=== PATIENT | female | born 1980 | race Two or more races ===

== ENCOUNTER 2021-12-21 09:33 | Outpatient (REF) | payer OTHER, SELFPAY ==
[2021-12-21 10:04] LABS: MANUAL DIFF FLAG NO
[2021-12-21 10:31] LABS: Basophils Percent Auto 0.3 % (0-2); Eosinophils Absolute Auto 0.3 X10*3/uL (0.0-0.4); Eosinophils Percent Auto 3.6 % (0-4); Hematocrit 38.5 % (37.0-47.0); Hemoglobin 12.8 g/dl (12.0-16.0); Imm Gran Abs Auto 0.03 X10*3/uL (0.00-0.03); Imm Gran Pct Auto 0.3 % (0.0-0.4); Lymphocytes Absolute Auto 2.9 X10*3/uL (1.2-4.9); Lymphocytes Percent Auto 32.1 % (20-40); Mean Corpuscular HGB Conc 33.2 g/dl (31.0-35.0); Mean Corpuscular Hemoglobin 29.8 pg (27.0-33.0); Mean Corpuscular Volume 89.7 fL (80.0-98.0); Mean Platelet Volume 9.2 fL (9.4-12.3); Monocytes Absolute Auto 0.5 X10*3/uL (0.1-1.2); Monocytes Percent Auto 5.7 % (2-11); Neutrophils Absolute Auto 5.1 x10*3/uL (2.0-8.3); Platelet Count 290 X10*3/uL (160-400); Red Blood Count 4.29 X10*6/uL (4.20-5.50); Red Cell Distribution Width 12.3 % (11.0-16.0); White Blood Count 8.9 X10*3/uL (4.8-10.8)
[2021-12-21 10:52] LABS: Estimated Average Glucose 105 mg/dL; Hemoglobin A1c % 5.3 %
[2021-12-21 11:02] LABS: Alanine Aminotransferase 46 U/L (0-31); Albumin Level 3.6 g/dL (3.5-5.0); Alkaline Phosphatase 56 U/L (39-117); Anion Gap 9 (12-20); Aspartate Amino Transferase 27 U/L (5-31); Bilirubin Total 0.6 mg/dL (0.0-1.0); Blood Urea Nitrogen 9 mg/dL (9-16); Calcium 8.2 mg/dL (8.4-10.2); Carbon Dioxide 27 mmol/L (22-29); Chloride 107 mmol/L (96-108); Cholesterol 178 mg/dL; Estimated Glomerular Filt Rate > 60; Glucose Fasting 97 mg/dL (60-99); HDL Cholesterol 43 mg/dL; LDL Cholesterol Calculated 101 mg/dl; Potassium 4.1 mmol/L (3.3-5.1); Sodium 139 mmol/L (135-145); Total Protein 6.1 g/dL (6.5-8.0); Triglycerides 172 mg/dL
[2021-12-21 11:26] LABS: TSH reflex Free T4 3.24 uIU/mL (0.32-4.0)
[2021-12-21 11:31] LABS: Folate 17.9 ng/mL (> or = 4.0); Vitamin B12 638 pg/mL (200-900)
[2021-12-26 13:01] LABS: Vitamin D 25-OH, D2 <4 ng/mL; Vitamin D 25-OH, D3 24 ng/mL; Vitamin D 25-OH, Total 24 ng/mL (30-100)
== END 2021-12-21 09:34 | disposition home or self-care (01) ==
LOC: HO.LAB 09:33
PROVIDERS: PCP Nurse Practitioner Acute Care; Visit Provider Nurse Practitioner Acute Care
DX: Z76.89 Persons encountering health services in other specified circumstances (principal); Z13.220 Encounter for screening for lipoid disorders; Z13.29 Encounter for screening for other suspected endocrine disorder
CPT/HCPCS: 36415; 80053; 80061; 82306; 82607; 82746; 83036; 84443; 85025

== ENCOUNTER 2022-12-13 10:26 | Outpatient (REF) | payer OTHER, SELFPAY ==
[2022-12-13 10:41] LABS: MANUAL DIFF FLAG NO
--- NOTE | 2022-12-13 10:43 | ECG_ITS ---
Test Reason : CHEST PAIN Blood Pressure : / mmHG Vent. Rate : 080 BPM Atrial Rate : 080 BPM P-R Int : 148 ms QRS Dur : 074 ms QT Int : 352 ms P-R-T Axes : 069 051 051 degrees QTc Int : 405 ms Normal sinus rhythm Normal ECG No previous ECGs available Referred By: Manisha Marcos Electronically Signed By:TANNER SCHMITT MD
[2022-12-13 11:05] LABS: Basophils Percent Auto 0.5 % (0-2); Eosinophils Absolute Auto 0.3 X10*3/uL (0.0-0.4); Eosinophils Percent Auto 4.3 % (0-4); Hematocrit 40.4 % (37.0-47.0); Hemoglobin 13.2 g/dl (12.0-16.0); Imm Gran Abs Auto 0.01 X10*3/uL (0.00-0.03); Imm Gran Pct Auto 0.1 % (0.0-0.4); Lymphocytes Absolute Auto 2.9 X10*3/uL (1.2-4.9); Lymphocytes Percent Auto 38.3 % (20-40); Mean Corpuscular HGB Conc 32.7 g/dl (31.0-35.0); Mean Corpuscular Hemoglobin 29.1 pg (27.0-33.0); Mean Corpuscular Volume 89.2 fL (80.0-98.0); Mean Platelet Volume 9.3 fL (9.4-12.3); Monocytes Absolute Auto 0.4 X10*3/uL (0.1-1.2); Monocytes Percent Auto 5.2 % (2-11); Neutrophils Absolute Auto 3.9 x10*3/uL (2.0-8.3); Neutrophils Percent Auto 51.6 % (45-73); Platelet Count 328 X10*3/uL (160-400); Red Blood Count 4.53 X10*6/uL (4.20-5.50); Red Cell Distribution Width 12.2 % (11.0-16.0); White Blood Count 7.7 X10*3/uL (4.8-10.8)
[2022-12-13 12:04] LABS: Alanine Aminotransferase 19 U/L (0-31); Albumin Level 3.9 g/dL (3.5-5.0); Alkaline Phosphatase 56 U/L (39-117); Anion Gap 11 (12-20); Aspartate Amino Transferase 17 U/L (5-31); Bilirubin Total 0.6 mg/dL (0.0-1.0); Blood Urea Nitrogen 11 mg/dL (9-16); Calcium 8.6 mg/dL (8.4-10.2); Carbon Dioxide 27 mmol/L (22-29); Chloride 108 mmol/L (96-108); Cholesterol 219 mg/dL; Estimated Glomerular Filt Rate > 60; Glucose Random 108 mg/dL (60-115); HDL Cholesterol 49 mg/dL; LDL Cholesterol Calculated 140 mg/dl; Potassium 4.5 mmol/L (3.3-5.1); Sodium 141 mmol/L (135-145); TSH reflex Free T4 2.89 uIU/mL (0.32-4.0); Total Protein 6.4 g/dL (6.5-8.0); Triglycerides 153 mg/dL
[2022-12-13 13:02] LABS: Vitamin D 25-OH Total 26.2 ng/mL (>30)
== END 2022-12-13 10:27 | disposition home or self-care (01) ==
LOC: HO.LAB 10:26
PROVIDERS: PCP Internal Medicine; Visit Provider Nurse Practitioner Family
DX: R07.89 Other chest pain (principal); R74.01 Elevation of levels of liver transaminase levels; Z13.21 Encounter for screening for nutritional disorder; Z13.29 Encounter for screening for other suspected endocrine disorder; Z13.220 Encounter for screening for lipoid disorders; Z13.0 Encounter for screening for diseases of the blood and blood-forming organs and certain disorders involving the immune mechanism; E55.9 Vitamin D deficiency, unspecified
CPT/HCPCS: 36415; 80053; 80061; 82306; 84443; 85025; 93005

== ENCOUNTER 2023-04-18 13:23 | Outpatient (AMB) | payer OTHER, SELFPAY ==
[2023-04-18 13:33] VITALS: BP 108/70; BMI 36.2
--- NOTE | 2023-04-18 13:33 | MHC.PC.OV ---
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 Accompanied by: Self / Same As Patient Allergies No Known Drug Allergies Allergy (Mild, Verified 04/18/23 13:43) Unknown Medication List - Last Reconciled 04/18/23 by Azra Dhaliwal MD albuterol sulfate 90 mcg/actuation 2 puffs PO QID PRN cetirizine 10 mg PO DAILY 30 days cholecalciferol (vitamin D3) 50 mcg PO DAILY citalopram 10 mg PO DAILY clotrimazole-betamethasone 1-0.05 % 1 appl topical ONCE PRN fluticasone propionate 110 mcg/actuation (Flovent HFA) 1 puff inhalation BID folic acid 1 mg PO DAILY 30 days hydrocortisone-acetic acid 1-2 % 4 drps otic (ear) left TID levothyroxine 25 mcg PO DAILY omeprazole 20 mg PO DAILY Tobacco use date assessed: 03/21/23 Dental Screening Dental Screen Date: 04/18/23 Did you have a dental visit in the last 12 months?: Yes Did you have a dental problem in the last 6 months where you did not have access to dental care?: No Was dental information given to patient?: Patient has dentist HPI HPI Comments History of Present Illness Details This is a 42-year-old female with mild major depression, hypothyroidism, GERD and asthma that comes today complaining of loss of concentration and 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 On citalopram for depression. She needs FMLA continuous leave from April 21 to May 05. TSH was ordered for her hypothyroidism. GERD stable with medications. Use rescue inhaler once a month. [facility] Medical History (Updated 04/18/23 @ 15:00 by Azra Dhaliwal MD) Asthma Chest pressure Depression Hypothyroidism Otitis externa, left Persistent insomnia Sciatica associated with disorder of lumbar spine Surgical History H/O eye surgery History of History of cholecystectomy History of tonsillectomy Family History Mother No problems noted. Father Venous insufficiency Sister Leukemia Social History Housing: House Alcohol intake: current Alcohol intake frequency: does not drink Patient Tobacco Use Status: Never used Tobacco e-Cigarette/Vaping Use: Never Used Second Hand Smoke Exposure: No service: No Current occupational status: employed Current occupational exposures/hazards: No Cognitive needs: No Hearing needs: No Vision needs: Yes (glasses) Questionnaire Thrive Questionnaire Date Thrive assessed: 12/13/22 ZACHERY-7 AMB Questionnaire ZACHERY-7 Date ZACHERY - 7 assessed: 12/13/22 Source: Developed by Drs. Ezio Jaramillo, Ama Ibarra, Randall Melara and colleagues, with an educational layo from [employer]. Review of Systems Const All systems reviewed & are unremarkable except as noted in HPI and below Eyes Reports no additional complaints, Denies change in vision and Denies other visual disturbances Card Denies chest pain at rest, Denies chest pain with activity, Denies edema, Denies irregular heart rhythm, Denies claudication, Denies dyspnea, Denies dyspnea on exertion, Denies orthopnea, Denies paroxysmal nocturnal dyspnea and Denies slow heart rate Resp Denies cough, Denies dyspnea and Denies dyspnea on exertion GI Denies abdominal pain, Denies change in bowel habits, Denies excessive flatus, Denies nausea and Denies vomiting Denies urinary incontinence, Denies urinary hesitancy and Denies urinary urgency Musc Denies abnormal gait, Denies atrophy, Denies deformity and Denies limited range of motion Skin/Breast Denies bleeding lesions, Denies changing lesions and Denies rash Neuro Denies abnormal gait and Denies lack of coordination Psych Reports depression Physical exam (Primary Care) Vital Signs: Last Vital Signs BP 108/70 04/18/23 13:33 BMI result Body Mass Index 36.2 Tobacco/Smoking Status: Tobacco use Status Tobacco use date assessed 03/21/23 04/18/23 13:40 Patient Tobacco Use Status Never used Tobacco 04/18/23 13:40 e-Cigarette/Vaping Use Never Used 04/18/23 13:40 Thrive Assessment: Date of Thrive Assessment Date Thrive assessed 12/13/22 04/18/23 13:40 Eyes General: appearance normal, both eyes and all related structures Eyelids: Yes eyelids normal Conjunctivae: conjunctivae normal Neck Neck: Yes normal visual inspection and Yes supple Resp Effort & Inspection: normal respiratory effort Auscultation: clear to auscultation bilaterally Cardio Jugular venous distension: no JVD Rate: regular rate Rhythm: regular rhythm Heart sounds: S1 normal heart sound present and S2 normal heart sound present Extrem General: Yes full ROM Psych Appearance: grossly normal Affect: Sad affect present Assessment and Plan Assessment & Plan (1) Mild major depression: Code(s): F32.0 - Major depressive disorder, single episode, mild Plan: Continue citalopram (2) GERD without esophagitis: Code(s): K21.9 - Gastro-esophageal reflux disease without esophagitis Plan: Continue omeprazole. 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 Monitor TSH (4) Asthma: Code(s): J45.909 - Unspecified asthma, uncomplicated Plan: Use rescue inhaler as needed Orders: Orders Thyroid Stimulating Hormone Today E03.8 - Other specified hypothyroidism, E06.3 - Autoimmune thyroiditis Medications: Refilled hydrocortisone-acetic acid 1-2 % instill 4 drops into left ear three times a day for 7 days 4 drps otic (ear) left TID 10 mL 0RF folic acid 1 mg PO DAILY 30 days 30 tabs 3RF H66.90 - Otitis media, unspecified, unspecified ear Coding Level of Care Code Est Pt Level 4 (09933) Diagnoses Mild major depression F32.0 GERD without esophagitis K21.9 Hypothyroidism E03.8; E06.3 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
== END 2023-04-18 13:59 | disposition home or self-care (01) ==
PROVIDERS: PCP Internal Medicine; Visit Provider Internal Medicine
DX: F32.0 Major depressive disorder, single episode, mild (principal); K21.9 Gastro-esophageal reflux disease without esophagitis; E03.8 Other specified hypothyroidism; E06.3 Autoimmune thyroiditis; J45.909 Unspecified asthma, uncomplicated
CPT/HCPCS: 99214

== ENCOUNTER 2023-04-18 14:08 | Outpatient (REF) | payer OTHER, SELFPAY ==
[2023-04-18 20:39] LABS: Thyroid Stimulating Hormone 1.61 uIU/mL (0.32-4.0)
== END 2023-04-18 14:09 | disposition home or self-care (01) ==
LOC: HO.LAB 14:08
PROVIDERS: PCP Internal Medicine; Visit Provider Internal Medicine
DX: E03.8 Other specified hypothyroidism (principal); E06.3 Autoimmune thyroiditis
CPT/HCPCS: 36415; 84443

== ENCOUNTER 2023-05-22 16:35 | Outpatient (AMB) | payer OTHER, SELFPAY ==
[2023-05-22 16:38] VITALS: BP 122/80; BMI 36.4
--- NOTE | 2023-05-22 16:38 | A.OFFPC_ITS ---
Vital Signs 05/22/23 16:38 Height 5 ft 2 in Weight 199 lb BMI 36.4 BP 122/80 Blood Pressure Location Lt brachial Position Sitting Intake Visit Reasons: F/U with Dr. 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 Accompanied by: Self / Same As Patient Allergies No Known Drug Allergies Allergy (Mild, Verified 05/22/23 16:52) Unknown Medication List - Last Reconciled 05/22/23 by Azra Dhaliwal MD albuterol sulfate 90 mcg/actuation 2 puffs PO QID PRN cetirizine 10 mg PO DAILY 30 days cholecalciferol (vitamin D3) 50 mcg PO DAILY citalopram 10 mg PO DAILY clotrimazole-betamethasone 1-0.05 % 1 appl topical ONCE PRN fluticasone propionate 110 mcg/actuation (Flovent HFA) 1 puff inhalation BID folic acid 1 mg PO DAILY 30 days hydrocortisone-acetic acid 1-2 % 4 drps otic (ear) left TID levothyroxine 25 mcg PO DAILY omeprazole 20 mg PO DAILY Tobacco use date assessed: 03/21/23 Dental Screening Dental Screen Date: 05/22/23 Did you have a dental visit in the last 12 months?: Yes Did you have a dental problem in the last 6 months where you did not have access to dental care?: No Was dental information given to patient?: Patient has dentist HPI HPI Comments History of Present Illness Details This is a 43-year-old female with GERD without esophagitis, hypothyroidism, mild major depression and low vitamin-D that comes today for follow-up on her conditions. GERD stable with medications. Last TSH was normal. Depression has improved with medications. On vitamin-D supplements for low vitamin-D. Denies any chest pain or shortness of breath. Complains of legs feeling heavy when she walks. [facility] Medical History (Updated 04/18/23 @ 15:00 by Azra Dhaliwal MD) Asthma Chest pressure Depression Hypothyroidism Otitis externa, left Persistent insomnia Sciatica associated with disorder of lumbar spine Surgical History H/O eye surgery History of History of cholecystectomy History of tonsillectomy Family History Mother No problems noted. Father Venous insufficiency Sister Leukemia Social History Housing: House Alcohol intake: current Alcohol intake frequency: does not drink Patient Tobacco Use Status: Never used Tobacco e-Cigarette/Vaping Use: Never Used Second Hand Smoke Exposure: No service: No Current occupational status: employed Current occupational exposures/hazards: No Cognitive needs: No Hearing needs: No Vision needs: Yes (glasses) Questionnaire Thrive Questionnaire Date Thrive assessed: 12/13/22 ZACHERY-7 AMB Questionnaire ZACHERY-7 Date ZACHERY - 7 assessed: 12/13/22 Source: Developed by Drs. Ezio Jaramillo, Ama Ibarra, Randall Melara and colleagues, with an educational layo from [employer]. Review of Systems Const All systems reviewed & are unremarkable except as noted in HPI and below Eyes Reports no additional complaints, Denies change in vision and Denies other visual disturbances Card Denies chest pain at rest, Denies chest pain with activity, Denies edema, Denies irregular heart rhythm, Denies claudication, Denies dyspnea, Denies dyspnea on exertion, Denies orthopnea, Denies paroxysmal nocturnal dyspnea and Denies slow heart rate Resp Denies cough, Denies dyspnea and Denies dyspnea on exertion GI Denies abdominal pain, Denies change in bowel habits, Denies excessive flatus, Denies nausea and Denies vomiting Denies urinary incontinence, Denies urinary hesitancy and Denies urinary urgency Musc Denies abnormal gait, Denies atrophy, Denies deformity and Denies limited range of motion Skin/Breast Denies bleeding lesions, Denies changing lesions and Denies rash Neuro Denies abnormal gait and Denies lack of coordination Physical exam (Primary Care) Vital Signs: Last Vital Signs BP 122/80 05/22/23 16:38 BMI result Body Mass Index 36.4 Tobacco/Smoking Status: Tobacco use Status Tobacco use date assessed 03/21/23 05/22/23 16:42 Patient Tobacco Use Status Never used Tobacco 05/22/23 16:42 e-Cigarette/Vaping Use Never Used 05/22/23 16:42 Thrive Assessment: Date of Thrive Assessment Date Thrive assessed 12/13/22 05/22/23 16:42 Eyes General: appearance normal, both eyes and all related structures Eyelids: Yes eyelids normal Conjunctivae: conjunctivae normal Neck Neck: Yes normal visual inspection and Yes supple Resp Effort & Inspection: normal respiratory effort Auscultation: clear to auscultation bilaterally Cardio Jugular venous distension: no JVD Rate: regular rate Rhythm: regular rhythm Heart sounds: S1 normal heart sound present and S2 normal heart sound present Extrem General: Yes full ROM Assessment and Plan Assessment & Plan (1) Mild major depression: Code(s): F32.0 - Major depressive disorder, single episode, mild Plan: Continue citalopram. 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
== END 2023-05-22 17:13 | disposition home or self-care (01) ==
PROVIDERS: PCP Physician Assistant; Visit Provider Internal Medicine
DX: F33.0 Major depressive disorder, recurrent, mild (principal); K21.9 Gastro-esophageal reflux disease without esophagitis; E03.8 Other specified hypothyroidism; E06.3 Autoimmune thyroiditis; E55.9 Vitamin D deficiency, unspecified
CPT/HCPCS: 99214

== ENCOUNTER 2023-11-16 15:29 | Outpatient (AMB) | payer OTHER, SELFPAY ==
--- NOTE | 2023-11-16 15:33 | A.OFFPC_ITS ---
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 Accompanied by: Self / Same As Patient Allergies No Known Drug Allergies Allergy (Mild, Verified 11/16/23 15:54) Unknown Medication List - Last Reconciled 11/16/23 by Azra Dhaliwal MD albuterol sulfate 90 mcg/actuation 2 puffs PO QID PRN cetirizine 10 mg PO DAILY 30 days cholecalciferol (vitamin D3) 50 mcg PO DAILY citalopram 10 mg PO DAILY clotrimazole-betamethasone 1-0.05 % 1 appl topical ONCE PRN fluticasone furoate 50 mcg/actuation (Arnuity Ellipta) 1 inh inhalation DAILY 30 days hydrocortisone-acetic acid 1-2 % 4 drps otic (ear) left TID levothyroxine 25 mcg PO DAILY omeprazole 20 mg PO DAILY Tobacco use date assessed: 11/16/23 Dental Screening Dental Screen Date: 11/16/23 Did you have a dental visit in the last 12 months?: No Did you have a dental problem in the last 6 months where you did not have access to dental care?: No Was dental information given to patient?: Patient has dentist HPI HPI Comments History of Present Illness Details This is a 43-year-old female with mild major depression that comes for her physical exam. Depression has markedly improved with citalopram. Last mammogram was about a year ago. Last Pap smear was 122 years ago and was normal as per patient done at [facility]. Has never had a colonoscopy and has no family history of colon cancer. I will send her to Gastroenterology to evaluate for colonoscopy. No chest pain or shortness of breath. Feels abdominal bloating associated with food and will start dicyclomine. Side effects were discussed. She is obese with a BMI of 37.9 and was advised to diet and exercise to reach BMI goal less than 30. [facility] Medical History (Updated 11/16/23 @ 16:07 by Azra Dhaliwal MD) Otitis externa, left Chest pressure Sciatica associated with disorder of lumbar spine Persistent insomnia Hypothyroidism Depression Asthma Surgical History History of cholecystectomy History of History of tonsillectomy H/O eye surgery Family History Mother No problems noted. Father Venous insufficiency Sister Leukemia Social History (Updated 11/16/23 @ 15:58 by Azra Dhaliwal MD) Housing: House Alcohol intake: current Alcohol intake frequency: holidays/special occasions only Alcohol type: hard liquor Patient Tobacco Use Status: Never used Tobacco e-Cigarette/Vaping Use: Never Used Second Hand Smoke Exposure: No service: No Current occupational status: employed Current occupational exposures/hazards: No Cognitive needs: No Hearing needs: No Vision needs: Yes (glasses) Questionnaire PHQ-9 Over the last 2 weeks, how often have you been bothered by any of the following problems? 1. Little interest or pleasure in doing things: not at all 2. Feeling down, depressed, or hopeless: not at all 3. Trouble falling or staying asleep, or sleeping too much: not at all 4. Feeling tired or having little energy: not at all 5. Poor appetite or overeating: not at all 6. Feeling bad about yourself - or that you are a failure or have let yourself or your family down: not at all 7. Trouble concentrating on things, such as reading the newspaper or watching television: not at all 8. Moving or speaking so slowly that other people could have noticed. Or the opposite - being so fidgety or restless that you have been moving around a lot more than usual: not at all 9. Thoughts that you would be better off or of hurting yourself in some way: not at all Total score: 0 Depression Screening Interpretation: Negative Depression Screening Done: Yes 44812 - PHQ-9 Billing: Yes Source: Developed by Drs. Ezio Jaramillo, Ama Ibarra, Randall Melara and colleagues, with an educational layo from [email or web address]. Thrive Questionnaire Date Thrive assessed: 11/16/23 I am a: Patient What is your living situation today?: I have a steady place to live Within the past 12 months, did the food you bought not last and you didn't have the money to get more?: Never true Within the past 12 months, did you worry whether your food would run out before you got money to buy more?: Never true Do you have trouble paying for medicines?: No Do you have trouble getting transportation to medical appointments?: No Do you have trouble paying your heating and electricity bill?: No Do you have trouble taking care of your child, family member or friend?: No Do you have trouble with day-to-day activities such as bathing, preparing meals, shopping, managing finances, etc.?: No Are you currently unemployed and looking for a job?: No Are you interested in more education?: No Please select the resources that you would like help with: None Currently or been in a relationship where the following occur: no concerns reported THRIVE Score: 0 AUDIT C Alcohol Use Questionnaire (AUDIT-C) 1. How often do you have a drink containing alcohol?: Never Total Score: 0 ZACHERY-7 AMB Questionnaire ZACHERY-7 Date ZACHERY - 7 assessed: 11/16/23 Feeling nervous, anxious, or on edge: 1 = Several days Not being able to stop or control worryin = Not at all Worrying too much about different things: 0 = Not at all Trouble relaxin = Not at all Being so restless that it is hard to sit still: 0 = Not at all Becoming easily annoyed or irritable: 0 = Not at all Feeling afraid as if something awful might happen: 0 = Not at all Total ZACHERY-7 score (0-4 normal; 5-9 mild; 10-14 moderate; 15-21 severe): 1 Source: Developed by Drs. Ezio Jaramillo, Ama Ibarra, Randall Melara and colleagues, with an educational layo from [email or web address]. ZACHERY-7 Assessment Billing ZACHERY-7 Assessment Tool: ZACHERY-7 Assessment 01231 Review of Systems Const All systems reviewed & are unremarkable except as noted in HPI and below Eyes Reports no additional complaints, Denies change in vision and Denies other visual disturbances Card Denies chest pain at rest, Denies chest pain with activity, Denies edema, Denies irregular heart rhythm, Denies claudication, Denies dyspnea, Denies dyspnea on exertion, Denies orthopnea, Denies paroxysmal nocturnal dyspnea and Denies slow heart rate Resp Denies cough, Denies dyspnea and Denies dyspnea on exertion GI Denies abdominal pain, Denies change in bowel habits, Denies excessive flatus, Denies nausea and Denies vomiting Denies urinary incontinence, Denies urinary hesitancy and Denies urinary urgency Musc Denies abnormal gait, Denies atrophy, Denies deformity and Denies limited range of motion Skin/Breast Denies bleeding lesions, Denies changing lesions and Denies rash Neuro Denies abnormal gait, Denies behavioral changes, Denies confusion and Denies lack of coordination Psych Denies behavioral changes and Denies confusion Physical exam (Primary Care) Vital Signs: Last Vital Signs BP 110/72 11/16/23 15:36 BMI result Body Mass Index 37.9 Tobacco/Smoking Status: Tobacco use Status Tobacco use date assessed 11/16/23 11/16/23 15:38 Patient Tobacco Use Status Never used Tobacco 11/16/23 15:35 e-Cigarette/Vaping Use Never Used 11/16/23 15:35 PHQ-9: PHQ-9 Score PHQ-9: Total score 0 11/16/23 15:43 Depression Screening Interpretation: Negative Thrive Assessment: Date of Thrive Assessment Date Thrive assessed 11/16/23 11/16/23 15:43 Currently or been in a relationship where the following occur: no concerns reported Const General: No confusion Orientation/consciousness: patient oriented x3 and No confusion HENPA Head: Yes normal to inspection, Yes normocephalic and Yes atraumatic Ears: external ears normal Eyes General: appearance normal, both eyes and all related structures Eyelids: Yes eyelids normal Conjunctivae: conjunctivae normal Neck Neck: Yes normal visual inspection and Yes supple Resp Effort & Inspection: normal respiratory effort Auscultation: clear to auscultation bilaterally Cardio Jugular venous distension: no JVD Rate: regular rate Rhythm: regular rhythm Heart sounds: S1 normal heart sound present and S2 normal heart sound present GI Inspection: Yes normal to inspection Palpation (GI): Soft to palpation and nontender Auscultation: normal bowel sounds Skin General skin exam: no rashes or lesions noted Neuro General: patient oriented x3, no focal motor deficits and No confusion Extrem General: Yes full ROM Psych Appearance: grossly normal Assessment and Plan Assessment & Plan (1) Physical exam: Code(s): Z00.00 - Encounter for general adult medical examination without abnormal findings Plan: Repeat in a year. (2) Mild major depression: Code(s): F32.0 - Major depressive disorder, single episode, mild Plan: Continue citalopram. Orders: Orders Thyroid Stimulating Hormone Today E03.8 - Other specified hypothyroidism, E06.3 - Autoimmune thyroiditis Lipid Panel Today Z00.00 - Encounter for general adult medical examination without abnormal findings MM screening mammo BI Today Z12.31 - Encounter for screening mammogram for malignant neoplasm of breast Comprehensive [place]. Panel Fast Today Z00.00 - Encounter for general adult medical examination without abnormal findings Referrals Gastroenterology Referral Z12.11 - Encounter for screening for malignant neoplasm of colon Medications: New dicyclomine 20 mg PO TID 30 days PRN 90 tabs 0RF abdominal pain Coding Level of Care Code Est Pt Prev Care 40-64y(31394) Diagnoses Physical exam Z00.00 Mild major depression F32.0 Additional Codes ZACHERY-7 Assessment Billing - ZACHERY-7 Assessment Tool: ZACHERY-7 Assessment 26191 ([id number]) Time Spent (min) 33
[2023-11-16 15:36] VITALS: BP 110/72; BMI 37.9
== END 2023-11-16 17:00 | disposition home or self-care (01) ==
PROVIDERS: PCP Physician Assistant; Visit Provider Internal Medicine
DX: Z00.00 Encounter for general adult medical examination without abnormal findings (principal); F32.0 Major depressive disorder, single episode, mild
CPT/HCPCS: 99396

== ENCOUNTER 2023-11-22 14:32 | Outpatient (AMB) | payer OTHER, SELFPAY ==
--- NOTE | 2023-11-22 14:36 | MHC.PC.OV ---
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 Accompanied by: Self / Same As Patient Allergies No Known Drug Allergies Allergy (Mild, Verified 11/22/23 14:57) Unknown Medication List - Last Reconciled 11/22/23 by Azra Dhaliwal MD albuterol sulfate 90 mcg/actuation 2 puffs PO QID PRN cetirizine 10 mg PO DAILY 30 days cholecalciferol (vitamin D3) 50 mcg PO DAILY citalopram 10 mg PO DAILY clotrimazole-betamethasone 1-0.05 % 1 appl topical ONCE PRN dicyclomine 20 mg PO TID PRN 30 days fluticasone furoate 50 mcg/actuation (Arnuity Ellipta) 1 inh inhalation DAILY 30 days hydrocortisone-acetic acid 1-2 % 4 drps otic (ear) left TID levothyroxine 25 mcg PO DAILY omeprazole 20 mg PO DAILY Tobacco use date assessed: 11/16/23 HPI HPI Comments History of Present Illness Details This is a 43-year-old female with hypothyroidism, sciatica associated with lumbar spine disorder, obesity and mild major depression that comes today complaining of some low back pain and I will refer her to pain management. This pain does not radiate to the legs. Denies fever, bowel or bladder incontinence. No leg numbness. TSH still pending. She is obese with a BMI of 37.5 and would like to start wegovy. Mild major depression stable with medications. [facility] Medical History Otitis externa, left Chest pressure Sciatica associated with disorder of lumbar spine Persistent insomnia Hypothyroidism Depression Asthma Surgical History History of cholecystectomy History of History of tonsillectomy H/O eye surgery Family History Mother No problems noted. Father Venous insufficiency Sister Leukemia Social History Housing: House Alcohol intake: current Alcohol intake frequency: holidays/special occasions only Alcohol type: hard liquor Patient Tobacco Use Status: Never used Tobacco e-Cigarette/Vaping Use: Never Used Second Hand Smoke Exposure: No service: No Current occupational status: employed Current occupational exposures/hazards: No Cognitive needs: No Hearing needs: No Vision needs: Yes (glasses) Questionnaire Thrive Questionnaire Date Thrive assessed: 11/16/23 ZACHERY-7 AMB Questionnaire ZACHERY-7 Date ZACHERY - 7 assessed: 11/16/23 Source: Developed by Drs. Ezio Jaramillo, Ama Ibarra, Randall Melara and colleagues, with an educational layo from [employer]. Review of Systems Const All systems reviewed & are unremarkable except as noted in HPI and below Eyes Reports no additional complaints, Denies change in vision and Denies other visual disturbances Card Denies chest pain at rest, Denies chest pain with activity, Denies edema, Denies irregular heart rhythm, Denies claudication, Denies dyspnea, Denies dyspnea on exertion, Denies orthopnea, Denies paroxysmal nocturnal dyspnea and Denies slow heart rate Resp Denies cough, Denies dyspnea and Denies dyspnea on exertion GI Denies abdominal pain, Denies change in bowel habits, Denies excessive flatus, Denies nausea and Denies vomiting Denies urinary incontinence, Denies urinary hesitancy and Denies urinary urgency Musc Denies abnormal gait, Denies atrophy, Denies deformity and Denies limited range of motion Skin/Breast Denies bleeding lesions, Denies changing lesions and Denies rash Neuro Denies abnormal gait and Denies lack of coordination Physical exam (Primary Care) Vital Signs: Last Vital Signs BP 118/70 11/22/23 14:37 BMI result Body Mass Index 37.5 Tobacco/Smoking Status: Tobacco use Status Tobacco use date assessed 11/16/23 11/22/23 14:36 Patient Tobacco Use Status Never used Tobacco 11/22/23 14:36 e-Cigarette/Vaping Use Never Used 11/22/23 14:36 Thrive Assessment: Date of Thrive Assessment Date Thrive assessed 11/16/23 11/22/23 14:36 Eyes General: appearance normal, both eyes and all related structures Eyelids: Yes eyelids normal Conjunctivae: conjunctivae normal Neck Neck: Yes normal visual inspection and Yes supple Resp Effort & Inspection: normal respiratory effort Auscultation: clear to auscultation bilaterally Cardio Jugular venous distension: no JVD Rate: regular rate Rhythm: regular rhythm Heart sounds: S1 normal heart sound present and S2 normal heart sound present Extrem General: Yes full ROM Assessment and Plan Assessment & Plan (1) Mild major depression: Code(s): F32.0 - Major depressive disorder, single episode, mild Plan: Continue citalopram. 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 (3) Sciatica associated with disorder of lumbar spine: Code(s): M53.86 - Other specified dorsopathies, lumbar region Plan: Referred to pain management. (4) Class 2 obesity with body mass index (BMI) of 37.0 to 37.9 in adult: Code(s): E66.9 - Obesity, unspecified; Z68.37 - Body mass index [BMI] 37.0-37.9, adult Plan: Start wegovy. 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
[2023-11-22 14:37] VITALS: BP 118/70; BMI 37.5
== END 2023-11-22 15:08 | disposition home or self-care (01) ==
PROVIDERS: PCP Internal Medicine; Visit Provider Internal Medicine
DX: F32.0 Major depressive disorder, single episode, mild (principal); E03.8 Other specified hypothyroidism; E06.3 Autoimmune thyroiditis; M53.86 Other specified dorsopathies, lumbar region; E66.9 Obesity, unspecified; Z68.37 Body mass index [BMI] 37.0-37.9, adult
CPT/HCPCS: 99214

== ENCOUNTER 2023-12-04 13:06 | Outpatient (REF) | payer OTHER, SELFPAY ==
--- NOTE | ~2023-12-04 | XR_ITS ---
EXAM: XR LUMBAR SPINE XR BILATERAL SACROILIAC JOINTS CLINICAL INFORMATION: Sacrococcygeal disorders, spondylosis without myelopathy or radiculopathy. COMPARISON: None. TECHNIQUE: 3 views of the bilateral sacroiliac joints. 5 views of the lumbar spine. FINDINGS: SACROILIAC JOINTS: Advanced degenerative changes in the bilateral sacroiliac joints with sclerosis and narrowing. Tiny pelvic calcifications are likely vascular. LUMBAR SPINE: Surgical clips in the right upper quadrant of the abdomen. Transitional anatomy is present. Lumbar vertebral body heights and alignment are preserved. Mild spondylosis in the [id number]-[id number] lumbar spine. Moderate facet arthritis with possible spondylolysis at what will be referred to as L5-S1 for the purposes of this report. Correlation with complete set of spine images is recommended to assure appropriate numbering of vertebral bodies and levels prior to any procedure or intervention. Degenerative changes on very limited, incomplete images of the bilateral hips. XR/XR sacroiliac joint min 3V IMPRESSION: 1. Advanced degenerative changes in the bilateral sacroiliac joints. 2. Mild spondylosis in the [id number]-wg-yxyhy lumbar spine. 3. Moderate facet arthritis with possible spondylolysis at what will be referred to as L5-S1 for the purposes of this report. Correlation with complete set of spine images is recommended to assure appropriate numbering of vertebral bodies and levels prior to any procedure or intervention.
--- NOTE | ~2023-12-04 | XR_ITS ---
EXAM: XR LUMBAR SPINE XR BILATERAL SACROILIAC JOINTS CLINICAL INFORMATION: Sacrococcygeal disorders, spondylosis without myelopathy or radiculopathy. COMPARISON: None. TECHNIQUE: 3 views of the bilateral sacroiliac joints. 5 views of the lumbar spine. FINDINGS: SACROILIAC JOINTS: Advanced degenerative changes in the bilateral sacroiliac joints with sclerosis and narrowing. Tiny pelvic calcifications are likely vascular. LUMBAR SPINE: Surgical clips in the right upper quadrant of the abdomen. Transitional anatomy is present. Lumbar vertebral body heights and alignment are preserved. Mild spondylosis in the vuu-ck-wfgdf lumbar spine. Moderate facet arthritis with possible spondylolysis at what will be referred to as L5-S1 for the purposes of this report. Correlation with complete set of spine images is recommended to assure appropriate numbering of vertebral bodies and levels prior to any procedure or intervention. Degenerative changes on very limited, incomplete images of the bilateral hips. XR/XR lumbar spine 4V min IMPRESSION: 1. Advanced degenerative changes in the bilateral sacroiliac joints. 2. Mild spondylosis in the emv-cj-phadp lumbar spine. 3. Moderate facet arthritis with possible spondylolysis at what will be referred to as L5-S1 for the purposes of this report. Correlation with complete set of spine images is recommended to assure appropriate numbering of vertebral bodies and levels prior to any procedure or intervention.
[2023-12-04 15:18] LABS: Alanine Aminotransferase 33 U/L (0-31); Albumin Level 4.1 g/dL (3.5-5.0); Alkaline Phosphatase 62 U/L (39-117); Anion Gap 10 (12-20); Aspartate Amino Transferase 27 U/L (5-31); Bilirubin Total 0.5 mg/dL (0.0-1.0); Blood Urea Nitrogen 13 mg/dL (9-16); Calcium 8.9 mg/dL (8.4-10.2); Carbon Dioxide 29 mmol/L (22-29); Chloride 107 mmol/L (96-108); Cholesterol 216 mg/dL (<200); Estimated Glomerular Filt Rate > 60; Glucose Fasting 100 mg/dL (60-99); HDL Cholesterol 54 mg/dL (>40); LDL Cholesterol Calculated 130 mg/dL (<100); Sodium 142 mmol/L (135-145); Total Protein 7.3 g/dL (6.5-8.0); Triglycerides 161 mg/dL (<150)
[2023-12-04 15:33] LABS: Thyroid Stimulating Hormone 2.08 uIU/mL (0.32-4.0)
[2023-12-06 13:58] LABS: Immunoglobulin A 216 mg/dL (47-310); Transglutaminase IgA <1.0 U/mL
== END 2023-12-04 13:07 | disposition home or self-care (01) ==
LOC: HO.XRAY 13:06
PROVIDERS: PCP Internal Medicine; Referring Provider Internal Medicine; Visit Provider Nurse Practitioner Family
DX: M47.817 Spondylosis without myelopathy or radiculopathy, lumbosacral region (principal); M53.3 Sacrococcygeal disorders, not elsewhere classified; M62.838 Other muscle spasm; M54.50 Low back pain, unspecified; G89.29 Other chronic pain; E06.3 Autoimmune thyroiditis; E03.8 Other specified hypothyroidism; R10.9 Unspecified abdominal pain; Z00.00 Encounter for general adult medical examination without abnormal findings
CPT/HCPCS: 36415; 72110; 72202; 80053; 80061; 82784; 84443; 86364

== ENCOUNTER 2023-12-04 13:06 | Outpatient (AMB) | payer OTHER, SELFPAY ==
--- NOTE | 2023-12-04 13:18 | MHC.OFFVIS ---
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 Denies any recent or past trauma, injury or falls. Back pain has been present since last 2 pregnancies in 2010 and 2011 by and has been worsening for the past 4 years. 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 Back pain is axial and occasionally will radiate into her left buttock and lateral left hip. Denies radiation into her lower extremities. She also reports episodic neck pain symptoms but notes that neck and back pain. Pain affects her daily activities, functioning, house chores, work, sleep, social activities and quality of life. Patient tried chiropractor adjustments, massages and TENS unit with minimal improvement. She is interested to pursue formal physical therapy. Denies any fever, weight loss, abdominal or groin pain, bladder or bowel dysfunction or saddle anesthesia. Location Lower back with radiation into her left upper buttock and lateral hip Duration Chronic pain for 12 years after /, worse past 4 years Characteristics of symptom or complaint Aching, sharp, stabbing, burning, tingling, sore, heavy Aggravating or associated factors Movement, prolonged sitting, pulling, lifting, house cleaning Relieving factors Aleeve, Tylenol, Ibuprofen, heat packs, topical applications Treatment Chiropractor therapy, Massage, TENS unit [facility] Medical History Otitis externa, left Chest pressure Sciatica associated with disorder of lumbar spine Persistent insomnia Hypothyroidism Depression Asthma Surgical History History of cholecystectomy History of History of tonsillectomy H/O eye surgery Family History Mother No problems noted. Father Venous insufficiency Sister Leukemia Social History Housing: House Alcohol intake: current Alcohol intake frequency: holidays/special occasions only Alcohol type: hard liquor Patient Tobacco Use Status: Never used Tobacco e-Cigarette/Vaping Use: Never Used Second Hand Smoke Exposure: No service: No Current occupational status: employed Current occupational exposures/hazards: No Cognitive needs: No Hearing needs: No Vision needs: Yes (glasses) Review of Systems Const All systems reviewed & are unremarkable except as noted in HPI and below Physical Exam Vital Signs: Last Vital Signs Pulse 78 12/04/23 13:23 BP 109/59 L 12/04/23 13:23 Pulse Ox 99 12/04/23 13:23 Oxygen Delivery Method Room Air 12/04/23 13:23 BMI result Body Mass Index 37.7 General: Appears afebrile. Alert and oriented. Mood and affect appropriate. Follows and participates in conversation appropriately. Respiratory effort is unlabored. No cough. Able to transition from sit to stand unassisted. Ambulates with bilaterally normal heel strike and toe off. Back/Spine/Pelvis Other: Patient is able to walk and stand on heels and tip toes with no difficulties demonstrating good motor tone. No limping. Can flex forward to 75-80 degrees and extend to 5-10 degrees before experiencing lumbar pain. Demonstrates 5/5 strength of quadriceps bilaterally as well as flexion/dorsiflexion of bilateral feet against resistance. 2+ pedal pulses bilaterally. Seated straight leg rise with dorsiflexion negative bilaterally. +2 patellar and achilles reflexes bilaterally. No clonus. Facet loading test positive bilaterally. Esteban?s, Gaenslen, Pelvic compression and Stinchfield tests are positive on the left. No groin pain with I/E hip rotations. Valsalva maneuver negative. Cervical Spine: cervical ROM normal, cervical muscular tenderness and No Cervical spine tenderness Thoracic/Lumbar Spine: thoracic and lumbar spine normal to inspection, No Thoracic/lumbar spine scar(s), Lasegue's sign negative, straight leg raise negative bilaterally, pain with thoraco-lumbar ROM, paraspinal muscle tenderness, No thoracic spinal tenderness and lumbar spinal tenderness (L4-S1) Pelvis: buttock tenderness on the left and no sciatic notch tenderness Sacroiliac joints: on the right nontender and on the left tender to palpation Psych Appearance: grossly normal and well kempt Mental Status: mental status grossly normal Speech and movement: Normal speech and movement present and Clear speech present Affect: normal affect Attitude: cooperative Thought process: Normal thought process present Thought content: Normal thought content present, suicidality (none), no hallucinations and Depressive thoughts present Insight: Good insight present (Psych) Judgement: Good judgement present (Psych) Assessment & Plan Assessment & Plan (1) Lumbosacral spondylosis: Code(s): M47.817 - Spondylosis without myelopathy or radiculopathy, lumbosacral region (2) Sacroiliac joint pain: Code(s): M53.3 - Sacrococcygeal disorders, not elsewhere classified (3) Muscle spasm: Code(s): M62.838 - Other muscle spasm (4) Chronic low back pain: Code(s): M54.50 - Low back pain, unspecified; G89.29 - Other chronic pain Plan Lumbar spine and sacroiliac joint imaging to assess degree of degenerative changes, any subluxation, listhesis, compression fractures or pars defects. Recommend formal Physical Therapy for lower back and SIJ pain. Script provided for PT at [facility] per patient's request. Script provided for methocarbamol. Side effects and precautions reviewed with patient. Continue Tylenol, NSAIDs, heat/ice therapy, weight loss, good posture, modification in work ergonomics to allow for standing desk if able, good hydration. Refill sent for Naproxen per patient's request, aware to use Naproxen prn only, with full glass of water and food. All questions and concerns have been answered and patient agreed with the plan. Follow up after PT and sooner as needed. Orders: Orders XR sacroiliac joint min 3V Today M47.817 - Spondylosis without myelopathy or radiculopathy, lumbosacral region, M53.3 - Sacrococcygeal disorders, not elsewhere classified XR lumbar spine 4V min Today M47.817 - Spondylosis without myelopathy or radiculopathy, lumbosacral region, M53.3 - Sacrococcygeal disorders, not elsewhere classified PT Evaluation and Treatment Today M47.817 - Spondylosis without myelopathy or radiculopathy, lumbosacral region, M53.3 - Sacrococcygeal disorders, not elsewhere classified, M62.838 - Other muscle spasm Medications: New methocarbamol 750 mg PO BID 30 days PRN 60 tabs 0RF muscle spasm M47.817 - Spondylosis without myelopathy or radiculopathy, lumbosacral region, M53.3 - Sacrococcygeal disorders, not elsewhere classified, M62.838 - Other muscle spasm Refilled naproxen 500 mg PO BID 30 days PRN 45 tabs 0RF pain Coding Level of Care Code New Pt Level 4 (84717) Diagnoses Lumbosacral spondylosis M47.817 Sacroiliac joint pain M53.3 Muscle spasm M62.838 Chronic low back pain M54.50; G89.29
[2023-12-04 13:23] VITALS: BP 109/59; PULSE 78; O2SAT 99; BMI 37.7
== END 2023-12-04 14:04 | disposition home or self-care (01) ==
PROVIDERS: PCP Internal Medicine; Referring Provider Internal Medicine; Visit Provider Nurse Practitioner Family
DX: M47.817 Spondylosis without myelopathy or radiculopathy, lumbosacral region (principal); M53.3 Sacrococcygeal disorders, not elsewhere classified; M62.838 Other muscle spasm; M54.50 Low back pain, unspecified; G89.29 Other chronic pain
CPT/HCPCS: 99204

== ENCOUNTER 2023-12-18 14:59 | Outpatient (AMB) | payer OTHER, SELFPAY ==
--- NOTE | 2023-12-18 14:59 | MHC.OFFVIS ---
Intake Vital Signs 12/18/23 15:00 Height 5 ft 2 in Weight 206 lb BMI 37.7 Intake Visit Reasons: Xray results Allergies No Known Drug Allergies Allergy (Mild, Verified 12/18/23 15:00) Unknown HPI HPI Comments History of Present Illness Details Patient presents today over telehealth encounter to discuss recent lumbar and sacroiliac joint xray results. Patient continues to endorse lower back pain, worse on the left side. She has pending appointment at [facility] to establish PT and home exercise program. Denies any recent cough, cold, infection, fever, any significant changes in her medical history, medications or recent hospitalizations. PRIOR: Patient is a pleasant 43 years old female presents today for initial evaluation of chronic low back pain. Denies any recent or past trauma, injury or falls. Back pain has been present since last 2 pregnancies in 2010 and 2011 by and has been worsening for the past 4 years. 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 Back pain is axial and occasionally will radiate into her left buttock and lateral left hip. Denies radiation into her lower extremities. She also reports episodic neck pain symptoms but notes that neck and back pain. Pain affects her daily activities, functioning, house chores, work, sleep, social activities and quality of life. Patient tried chiropractor adjustments, massages and TENS unit with minimal improvement. She is interested to pursue formal physical therapy. Denies any fever, weight loss, abdominal or groin pain, bladder or bowel dysfunction or saddle anesthesia. Location Lower back with radiation into her left upper buttock and lateral hip Duration Chronic pain for 12 years after /, worse past 4 years Characteristics of symptom or complaint Aching, sharp, stabbing, burning, tingling, sore, heavy Aggravating or associated factors Movement, prolonged sitting, pulling, lifting, house cleaning Relieving factors Aleeve, Tylenol, Ibuprofen, heat packs, topical applications Treatment Chiropractor therapy, Massage, TENS unit [facility] Medical History Otitis externa, left Chest pressure Sciatica associated with disorder of lumbar spine Persistent insomnia Hypothyroidism Depression Asthma Surgical History History of cholecystectomy History of History of tonsillectomy H/O eye surgery Family History Mother No problems noted. Father Venous insufficiency Sister Leukemia Social History Housing: House Alcohol intake: current Alcohol intake frequency: holidays/special occasions only Alcohol type: hard liquor Patient Tobacco Use Status: Never used Tobacco e-Cigarette/Vaping Use: Never Used Second Hand Smoke Exposure: No service: No Current occupational status: employed Current occupational exposures/hazards: No Cognitive needs: No Hearing needs: No Vision needs: Yes (glasses) Review of Systems Const All systems reviewed & are unremarkable except as noted in HPI and below ENT Reports Normal hearing present Neuro Reports Normal hearing present and Denies confusion Psych Denies confusion Physical Exam Vital Signs: BMI result Body Mass Index 37.7 Const General: cooperative, alert and awake; No confusion Orientation/consciousness: patient oriented x3 and No confusion Resp Effort & Inspection: able to speak in complete sentences, no audible wheezes and no cough Neuro General: patient oriented x3 and No confusion Cranial nerves: Yes Normal hearing present Cognition (Neuro): normal cognition Psych Mental Status: mental status grossly normal Speech and movement: Clear speech present Affect: normal affect Attitude: cooperative Thought process: Normal thought process present Thought content: Normal thought content present and No Depressive thoughts present Insight: Good insight present (Psych) Judgement: Good judgement present (Psych) Results Reviewed Results Reviewed: XR LUMBAR SPINE XR BILATERAL SACROILIAC JOINTS 12/04/23 CLINICAL INFORMATION: Sacrococcygeal disorders, spondylosis without myelopathy or radiculopathy. FINDINGS: SACROILIAC JOINTS: Advanced degenerative changes in the bilateral sacroiliac joints with sclerosis and narrowing. Tiny pelvic calcifications are likely vascular. LUMBAR SPINE: Surgical clips in the right upper quadrant of the abdomen. Transitional anatomy is present. Lumbar vertebral body heights and alignment are preserved. Mild spondylosis in the knt-js-qlzfa lumbar spine. Moderate facet arthritis with possible spondylolysis at what will be referred to as L5-S1 for the purposes of this report. Correlation with complete set of spine images is recommended to assure appropriate numbering of vertebral bodies and levels prior to any procedure or intervention. Degenerative changes on very limited, incomplete images of the bilateral hips. IMPRESSION: 1. Advanced degenerative changes in the bilateral sacroiliac joints. 2. Mild spondylosis in the [id number] lumbar spine. 3. Moderate facet arthritis with possible spondylolysis at what will be referred to as L5-S1 for the purposes of this report. Correlation with complete set of spine images is recommended to assure appropriate numbering of vertebral bodies and levels prior to any procedure or intervention. Assessment & Plan Assessment & Plan (1) Lumbosacral spondylosis: Code(s): M47.817 - Spondylosis without myelopathy or radiculopathy, lumbosacral region (2) Sacroiliac joint pain: Code(s): M53.3 - Sacrococcygeal disorders, not elsewhere classified (3) Muscle spasm: Code(s): M62.838 - Other muscle spasm (4) Chronic low back pain: Code(s): M54.50 - Low back pain, unspecified; G89.29 - Other chronic pain Plan Lumbar spine and sacroiliac joint imaging findings were discussed with patient today. Discussed interventional treatments for axial low back and SIJ pain, including diagnostic nerve blocks for potential peripheral nerve stimulation, therapeutic injections or RFA procedures. Patient would like to start formal Physical Therapy for lower back and SIJ pain. Has pending appointment for at [facility] [place]. Continue methocarbamol, Tylenol, NSAIDs, heat/ice therapy, weight loss, good posture, adequate hydration and work ergonomics adjustment as needed. All questions and concerns have been answered and patient agreed with the plan. Follow up after PT and sooner as needed. I hereby testify that I spent 11 minutes in conversation with this patient as well as with planning and coordinating care for this patient and organizing this note. Telehealth Telehealth Location of provider rendering services: practice address Location of patient: address on file Patient Identification confirmed using: Name, : Yes Telehealth method: voice only Patient verbally consented to treatment: Yes Patient verbally consented to billing insurance company: Yes Patient informed of any privacy concerns related to visit: Yes Minutes spent on Phone/Video with Pt.: 11 Coding Level of Care Code Tele Est Pt Level 3 (28299) Diagnoses Lumbosacral spondylosis M47.817 Sacroiliac joint pain M53.3 Muscle spasm M62.838 Chronic low back pain M54.50; G89.29
[2023-12-18 15:00] VITALS: BMI 37.7
== END 2023-12-18 15:26 | disposition home or self-care (01) ==
LOC: HO.PMC 14:59
PROVIDERS: PCP Internal Medicine; Visit Provider Nurse Practitioner Family
DX: M47.817 Spondylosis without myelopathy or radiculopathy, lumbosacral region (principal); M53.3 Sacrococcygeal disorders, not elsewhere classified; M62.838 Other muscle spasm; M54.50 Low back pain, unspecified; G89.29 Other chronic pain
CPT/HCPCS: 99213

== ENCOUNTER → 2023-12-18 14:59 | Outpatient (BNVA) | payer OTHER, SELFPAY | PROVIDERS: PCP Internal Medicine; Visit Provider Nurse Practitioner Family ==

== ENCOUNTER 2023-12-21 13:49 | Outpatient (AMB) | payer OTHER, SELFPAY ==
[2023-12-21 14:20] VITALS: BP 116/80; PULSE 111; TEMP 37.8; O2SAT 96; BMI 38.2
--- NOTE | 2023-12-21 14:20 | AM.OFFWIN_ITS ---
Intake Vital Signs 12/21/23 14:20 Height 5 ft 2 in Weight 209 lb BMI 38.2 BP 116/80 Blood Pressure Location Lt brachial Position Sitting Pulse 111 H Pulse Source Pulse Oximeter Temp 100.1 F Temp Source Temporal Artery Scan Pulse Oximetry (%) 96 Oxygen Delivery Method Room Air Intake Visit Reasons: EP fever,headache, back pain and [phone] Intake Note: pt is here for c/o of fever, headache, shortness of breath with exertion, and cough Patient Tobacco Use Status: Never used Tobacco Allergies No Known Drug Allergies Allergy (Mild, Verified 12/21/23 14:34) Unknown Do you need a note to return to daycare/school/sports/work: Yes HPI HPI Comments History of Present Illness Details 43 y/o female patient who presents to [facility] in clinic with c/o URI symptoms that started Monday. Reports fevers at home and feeling body chills. She has been using OTC remedies with no relief. [facility] Medical History Otitis externa, left Chest pressure Sciatica associated with disorder of lumbar spine Persistent insomnia Hypothyroidism Depression Asthma Surgical History History of cholecystectomy History of History of tonsillectomy H/O eye surgery Family History Mother No problems noted. Father Venous insufficiency Sister Leukemia Social History Housing: House Alcohol intake: current Alcohol intake frequency: holidays/special occasions only Alcohol type: hard liquor Patient Tobacco Use Status: Never used Tobacco e-Cigarette/Vaping Use: Never Used Second Hand Smoke Exposure: No service: No Current occupational status: employed Current occupational exposures/hazards: No Cognitive needs: No Hearing needs: No Vision needs: Yes (glasses) Physical Exam Vital Signs: Last Vital Signs Temp 100.1 F 12/21/23 14:20 Pulse 111 H 12/21/23 14:20 BP 116/80 12/21/23 14:20 Pulse Ox 96 12/21/23 14:20 Oxygen Delivery Method Room Air 12/21/23 14:20 BMI result Body Mass Index 38.2 Const General: no acute distress Orientation/consciousness: patient oriented x3 HEENT Head: Yes normocephalic Ears: external ears normal and TM's normal bilaterally General nose exam: Normal nasal mucous membranes and turbinates present Face and sinus: Yes sinuses nontender Mouth: moist mucous membranes Throat: Yes posterior oropharynx normal Resp Effort & Inspection: normal respiratory effort and able to speak in complete sentences Auscultation: clear to auscultation bilaterally, no crackles, no rales, no rhonchi and no wheezes Cardio Rate: regular rate Rhythm: regular rhythm Neuro General: patient oriented x3 Assessment & Plan Assessment & Plan (1) Upper respiratory infection: Code(s): J06.9 - Acute upper respiratory infection, unspecified Qualifiers: URI type: unspecified viral URI Qualified Code(s): J06.9 - Acute upper respiratory infection, unspecified Plan: - OTC cough remedies - Abx as directed. - Acetaminophen for pain relief. (2) Cough in adult: Code(s): R05.9 - Cough, unspecified Plan: - OTC cough remedies - Abx as directed. - Acetaminophen for pain relief. Plan - OTC cough remedies - Abx as directed. - Acetaminophen for pain relief. Orders: Orders SARS-CoV2/FLU/RSV Today R09.89 - Other specified symptoms and signs involving the circulatory and respiratory systems Medications: New wxdbbhknfwyod-ZN-uasozfsqpch 5-10-100 mg/5 mL (Adult Robitussin Peak Cold M-S) 10 mL PO Q4H PRN 237 mL 0RF cold symptoms J06.9 - Acute upper respiratory infection, unspecified benzonatate 100 mg PO TID 30 caps 0RF R05.9 - Cough, unspecified azithromycin 500 mg PO DAILY 3 days 3 tabs 0RF J06.9 - Acute upper respiratory infection, unspecified Coding Level of Care Code Est Pt Level 3 (15639) Diagnoses Viral upper respiratory tract infection J06.9 URI type: unspecified viral URI Cough in adult R05.9 Time Spent (min) 15
== END 2023-12-21 15:33 | disposition home or self-care (01) ==
PROVIDERS: PCP Internal Medicine; Visit Provider Nurse Practitioner Family
DX: J06.9 Acute upper respiratory infection, unspecified (principal); R05.9 Cough, unspecified
CPT/HCPCS: 99213

== ENCOUNTER 2023-12-21 15:17 | Outpatient (REF) | payer OTHER, SELFPAY ==
[2023-12-21 19:06] LABS: Influenza A PCR NEGATIVE (Negative); Influenza B PCR NEGATIVE (Negative); Resp Syncy Virus RNA Qual PCR NEGATIVE (Negative); SARS COV2 PCR INHOUSE NEGATIVE (Negative)
== END 2023-12-21 15:18 | disposition home or self-care (01) ==
LOC: HO.LAB 15:17
PROVIDERS: Visit Provider Nurse Practitioner Family
DX: R09.89 Other specified symptoms and signs involving the circulatory and respiratory systems (principal)
CPT/HCPCS: 0241U

== ENCOUNTER 2024-02-26 11:52 | Outpatient (AMB) | payer OTHER, SELFPAY ==
--- NOTE | 2024-02-26 12:00 | A.OFFVIS_ITS ---
Vital Signs 02/26/24 12:03 Height 5 ft 2 in Weight 207 lb BMI 37.9 BP 113/66 Blood Pressure Location Lt brachial Position Sitting Pulse 83 Intake Visit Reasons: Colonoscopy Screening Intake Note: Patient new consult for Pre Colonoscopy screening. Patient cc: abdominal is hard, acid reflex with food coming up her throat, and denies any other GI issues. Patient Admitting Representative Required: Yes Accompanied by: Self / Same As Patient Allergies No Known Drug Allergies Allergy (Mild, Verified 02/26/24 12:00) Unknown Medication List - Last Reconciled 02/26/24 by Brittany Ng PA-C albuterol sulfate 90 mcg/actuation 2 puffs PO QID PRN azithromycin 500 mg PO DAILY 3 days cetirizine 10 mg PO DAILY 30 days cholecalciferol (vitamin D3) 50 mcg PO DAILY citalopram 10 mg PO DAILY clotrimazole-betamethasone 1-0.05 % 1 appl topical ONCE PRN fluticasone furoate 50 mcg/actuation (Arnuity Ellipta) 1 inh inhalation DAILY 30 days hydrocortisone-acetic acid 1-2 % 4 drps otic (ear) left TID levothyroxine 25 mcg PO DAILY methocarbamol 750 mg PO BID PRN naproxen 500 mg PO BID PRN 30 days omeprazole 20 mg PO DAILY afzadqoudzdjs-CO-rsxsrzrgnus 5-10-100 mg/5 mL (Adult Robitussin Peak Cold M-S) 10 mL PO Q4H PRN HPI Comments Details: 43-year-old female referred for index screening colonoscopy-presents with GERD She has sister- had colon polyps Omeprazole 20 mg, breakthrough with water brash-unable to identify anything specific Appetite is good Bowels are normal Asthma with no complications uses inhalers as prescribed-follows with PCP Loki- not auth by insurance-she has not taking No nausea, vomiting, hematemesis, hematochezia fever or chills PFSH Medical History Otitis externa, left Chest pressure Sciatica associated with disorder of lumbar spine Persistent insomnia Hypothyroidism Depression Asthma Surgical History History of cholecystectomy History of History of tonsillectomy H/O eye surgery Family History Mother No problems noted. Father Venous insufficiency Sister Leukemia Social History (Updated 02/26/24 @ 12:19 by Brittany Ng PA-C) Housing: House Alcohol intake: former Patient Tobacco Use Status: Never used Tobacco e-Cigarette/Vaping Use: Never Used Second Hand Smoke Exposure: No service: No Current occupational status: employed Current occupational exposures/hazards: No Cognitive needs: No Hearing needs: No Vision needs: Yes (glasses) Physical Exam Vital Signs: Last Vital Signs Pulse 83 02/26/24 12:03 BP 113/66 02/26/24 12:03 BMI result Body Mass Index 37.9 Assessment & Plan Assessment & Plan (1) Screen for colon cancer: Comment: Very pleasant 43-year-old female- Discussed procedures, rare risks, need for escort Code(s): Z12.11 - Encounter for screening for malignant neoplasm of colon Category: Medical (2) Acid reflux: Comment: Rule out esophagitis-uses inhaler Asthma well-controlled Code(s): K21.9 - Gastro-esophageal reflux disease without esophagitis Category: Medical Plan: Omeprazole 20 mg Reflux precautions EGD r/o PUD, nonulcer dyspepsia, esophagitis other endoscopic findings to account for her sx (3) Bloating: Code(s): R14.0 - Abdominal distension (gaseous) Category: Medical Plan: Avoid culprit Plan EGD/ colon- Orders: Orders EGD/[place] Combo - GI Use Only Today Medications: New bisacodyl (Dulcolax (bisacodyl)) Day before procedure @ 12 noon Take 4 tablets by mouth followed by large glass of water 20 mg (4 x 5 mg) PO ONCE 1 day PRN 4 tabs 0RF colonoscopy prep Z12.11 - Encounter for screening for malignant neoplasm of colon polyethylene glycol 3350 (Miralax) Take as directed by mouth the day before your procedure. 238 grams PO ONCE 1 day PRN 238 grams 0RF laxative effect Patient Instructions: EGD and colonoscopy MiraLax Gatorade prep, reviewed literature given Encouraged to call questions or concerns or any change in health status If exacerbation of asthma-will call and reschedule procedures due to anesthesia Coding Level of Care Code New Pt Level 3 (22453) Diagnoses Screen for colon cancer Z12.11 Acid reflux K21.9 Bloating R14.0 Time Spent (min) 30
[2024-02-26 12:03] VITALS: BP 113/66; PULSE 83; BMI 37.9
== END 2024-02-26 12:36 | disposition home or self-care (01) ==
PROVIDERS: PCP Internal Medicine; Visit Provider Physician Assistant
DX: K21.9 Gastro-esophageal reflux disease without esophagitis (principal); Z12.11 Encounter for screening for malignant neoplasm of colon; R14.0 Abdominal distension (gaseous)
CPT/HCPCS: 99203

== ENCOUNTER → 2024-02-26 11:52 | Outpatient (BNVA) | payer OTHER, SELFPAY | PROVIDERS: PCP Internal Medicine; Visit Provider Physician Assistant ==

== ENCOUNTER 2024-05-22 14:05 | Outpatient (AMB) | payer BC, SELFPAY ==
--- NOTE | 2024-05-22 14:06 | A.OFFPC_ITS ---
Intake Visit Reasons: thyroid Thread Marker Required: No Accompanied by: Self / Same As Patient Allergies No Known Drug Allergies Allergy (Mild, Verified 05/22/24 14:14) Unknown Medication List - Last Reconciled 05/22/24 by Azra Dhaliwal MD albuterol sulfate 90 mcg/actuation 2 puffs PO QID PRN bisacodyl (Dulcolax (bisacodyl)) 20 mg (4 x 5 mg) PO ONCE PRN 1 day cetirizine 10 mg PO DAILY 30 days cholecalciferol (vitamin D3) 50 mcg PO DAILY citalopram 10 mg PO DAILY clotrimazole-betamethasone 1-0.05 % 1 appl topical ONCE PRN fluticasone furoate 50 mcg/actuation (Arnuity Ellipta) 1 inh inhalation DAILY 30 days hydrocortisone-acetic acid 1-2 % 4 drps otic (ear) left TID levothyroxine 25 mcg PO DAILY naproxen 500 mg PO BID PRN 30 days omeprazole 20 mg PO DAILY polyethylene glycol 3350 (Miralax) 238 grams PO ONCE PRN 1 day Tobacco use date assessed: 11/16/23 Dental Screening Dental Screen Date: 11/16/23 HPI HPI Comments History of Present Illness Details This is a 44-year-old female with mild major depression, GERD without esophagitis, hypothyroidism and asthma that has tele health visit by video for follow-up on her conditions. Depression stable with citalopram. GERD well controlled with PPIs. TSH will be order to be repeated this week. Use rescue inhaler 1 to 2 times a month and asthma has been well controlled with Arnuity. No chest pain or shortness on breath. [facility] Medical History Otitis externa, left Chest pressure Sciatica associated with disorder of lumbar spine Persistent insomnia Hypothyroidism Depression Asthma Surgical History History of cholecystectomy History of History of tonsillectomy H/O eye surgery Family History Mother No problems noted. Father Venous insufficiency Sister Leukemia Social History Housing: House Alcohol intake: former Patient Tobacco Use Status: Never used Tobacco e-Cigarette/Vaping Use: Never Used Second Hand Smoke Exposure: No service: No Current occupational status: employed Current occupational exposures/hazards: No Cognitive needs: No Hearing needs: No Vision needs: Yes (glasses) Questionnaire Thrive Questionnaire Date Thrive assessed: 11/16/23 ZACHERY-7 AMB Questionnaire ZACHERY-7 Date ZACHERY - 7 assessed: 11/16/23 Source: Developed by Drs. Ezio Jaramillo, Ama Ibarra, Randall Melara and colleagues, with an educational layo from [employer]. Review of Systems Const All systems reviewed & are unremarkable except as noted in HPI and below Card Denies chest pain at rest, Denies chest pain with activity, Denies edema, Denies irregular heart rhythm, Denies claudication, Denies dyspnea, Denies dyspnea on exertion, Denies orthopnea, Denies paroxysmal nocturnal dyspnea and Denies slow heart rate Resp Denies cough, Denies dyspnea and Denies dyspnea on exertion GI Denies abdominal pain, Denies change in bowel habits, Denies excessive flatus, Denies nausea and Denies vomiting Physical exam (Primary Care) Tobacco/Smoking Status: Tobacco use Status Tobacco use date assessed 11/16/23 05/22/24 14:08 Patient Tobacco Use Status Never used Tobacco 05/22/24 14:08 e-Cigarette/Vaping Use Never Used 05/22/24 14:08 Thrive Assessment: Date of Thrive Assessment Date Thrive assessed 11/16/23 05/22/24 14:08 HENMT Head: Yes normocephalic and Yes atraumatic Ears: external ears normal General nose exam: Normal external nose present and No nasal discharge present Mouth: lip normal Eyes General: appearance normal, both eyes and all related structures Telehealth Telehealth Telehealth Platform: Other (please specify) ([employer]) Location of provider rendering services: practice address Location of patient: address on file Patient Identification confirmed using: Name, : Yes Telehealth method: video Patient verbally consented to treatment: Yes Patient verbally consented to billing insurance company: Yes Patient informed of any privacy concerns related to visit: Yes Minutes spent on Phone/Video with Pt.: 15 Assessment and Plan Assessment & Plan (1) Mild major depression: Code(s): F32.0 - Major depressive disorder, single episode, mild Plan: Continue citalopram. (2) GERD without esophagitis: Code(s): K21.9 - Gastro-esophageal reflux disease without esophagitis Plan: Continue PPIs. (3) Asthma: Code(s): J45.909 - Unspecified asthma, uncomplicated Plan: Continue Arnuity. Use rescue inhaler as needed. 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 Repeat TSH. Orders: Orders Vitamin D 25-OH Total Today E55.9 - Vitamin D deficiency, unspecified Thyroid Stimulating Hormone Today E03.8 - Other specified hypothyroidism, E06.3 - Autoimmune thyroiditis Complete Blood Count Auto Diff Today D64.9 - Anemia, unspecified Medications: New Ventolin HFA 90 mcg/actuation (albuterol sulfate) 2 puffs inhalation Q6H 30 days PRN 8 grams 1RF shortness of breath or wheezing NS Refilled levothyroxine 25 mcg PO DAILY 30 tabs 2RF E03.9 - Hypothyroidism, unspecified fluticasone furoate 50 mcg/actuation (Arnuity Ellipta) 1 inh inhalation DAILY 30 days 30 ea 6RF J45.909 - Unspecified asthma, uncomplicated omeprazole 20 mg PO DAILY 90 caps 2RF K21.9 - Gastro-esophageal reflux disease without esophagitis clotrimazole-betamethasone 1-0.05 % 1 appl topical ONCE PRN 15 grams 0RF Rash Coding Level of Care Code Tele Est Pt Level 4 (24241) Complex EM visit Add On G2211 Diagnoses Mild major depression F32.0 GERD without esophagitis K21.9 Asthma J45.909 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
== END 2024-05-22 15:10 | disposition home or self-care (01) ==
LOC: HO.HMGH 14:05
PROVIDERS: PCP Internal Medicine; Visit Provider Internal Medicine
DX: K21.9 Gastro-esophageal reflux disease without esophagitis (principal); F32.0 Major depressive disorder, single episode, mild; J45.909 Unspecified asthma, uncomplicated; E03.8 Other specified hypothyroidism; E06.3 Autoimmune thyroiditis
CPT/HCPCS: 99214